=== PATIENT | female | born 2000 | race African-American/Black ===

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

== ENCOUNTER 2023-04-18 08:17 | Emergency (ER) | payer OTHER ==
[~2023-04-18] VITALS: Ht 162.6 cm; Wt 74.5 kg
[~2023-04-18 08:17] MED LIST: MACROBID 1100 MG/CAP PO
[2023-04-18 08:21] VITALS: TEMP 98
[2023-04-18 08:32] LABS: COLLECTION METHOD CLEAN CATCH
[2023-04-18 08:45] LABS: BASO % 0.5 % (0.0-2.0); EOS # 0.2 K/mm3 (0.0-0.7); EOS % 2.4 % (0.0-4.0); GRAN # 5.6 K/mm3 (1.4-6.5); HEMATOCRIT 38.9 % (37.0-47.0); HEMOGLOBIN 12.6 g/dl (12.5-16.0); LYMPH # 2.1 K/mm3 (1.2-3.4); LYMPH % 24.4 % (20.0-51.0); MEAN CELL VOLUME 89 fl (80.0-100.0); MEAN CORPUSCULAR HEMOGLOBIN 29 pg (27-31); MEAN CORPUSCULAR HGB CONC 32 g/dl (33.0-37.0); MEAN PLATELET VOLUME 10.1 fl (7.4-10.4); MONO # 0.6 K/mm3 (0.1-0.6); MONO % 7.5 % (1.7-9.3); PLATELET COUNT 260 K/mm3 (130-400); RED BLOOD COUNT 4.35 M/mm3 (4.10-5.30); REDCELL DISTRIBUTION WIDTH-CV 14.1 % (11.5-14.5)
[2023-04-18 08:49] LABS: URINE APPEARANCE Clear (CLEAR/HAZY); URINE BLOOD TRACE-INTACT (NEGATIVE); URINE COLOR Yellow (YELLOW); URINE GLUCOSE Negative (NEGATIVE); URINE KETONE TRACE (NEGATIVE); URINE NITRATE Negative (NEGATIVE); URINE PROTEIN(semi-quant) TRACE (NEGATIVE); URINE UROBILINOGEN 0.2 E.U/dL (0.2-1.0)
[2023-04-18 08:50] LABS: SQUAMOUS EPITHELIAL 0-2 /hpf (0-10)
[2023-04-18 08:51] LABS: URINE BACTERIA None Seen /hpf (NONE SEEN)
[2023-04-18 09:04] LABS: ALBUMIN 4.2 gm/dL (3.5-5.0); BILIRUBIN,TOTAL 0.6 mg/dL (0.2-1.2); CALCIUM 9.1 mg/dL (8.4-10.2); CREATININE, serum 0.8 mg/dL (0.57-1.11); POTASSIUM 3.1 mmol/L (3.5-4.5); TOTAL PROTEIN 7.2 gm/dL (6.2-8.1)
[2023-04-18] MEDS ORDERED: ZOFRAN ODT4 MG PO (11:37)
[2023-04-18] MEDS ORDERED: PEPCID 20MG TAB20 MG PO (11:37)
[2023-04-18] MEDS ORDERED: BENTYL 10MG10 MG/CAP PO (11:42)
[2023-04-18 12:00] VITALS: BP 101/63; PULSE 72
== END 2023-04-18 12:00 | disposition home or self-care (01) ==
LOC: COL.ER 08:17
PROVIDERS: Emergency Medicine
DX: K52.9 Noninfective gastroenteritis and colitis, unspecified (principal)
CPT/HCPCS: J1885; J2405; J7120